=== PATIENT | male | born 1955 | race Caucasian/White ===

== ENCOUNTER 2023-01-16 06:50 | Day surgery (SDC) | payer MEDICARE ==
[2023-01-16] MEDS ORDERED: Propofol 200 MG/20 ML SDV ONE ×2 (07:13→09:20)
[2023-01-16] MEDS ORDERED: Midazolam 1 MG/ML 2 ML SDV ONE (07:14)
[2023-01-16] MEDS ORDERED: fentaNYL 50 MCG/ML SDV ONE (07:14)
[2023-01-16] MEDS ORDERED: Lactated Ringers 1,000 ML IV SCH (07:30)
== END 2023-01-16 10:20 | disposition home or self-care (01) ==
LOC: JP.SDS 06:50
PROVIDERS: ATTEND Student in an Organized Health Care Education/Training Program
DX: Z12.11 Encounter for screening for malignant neoplasm of colon (principal); D12.2 Benign neoplasm of ascending colon; D12.3 Benign neoplasm of transverse colon; I10 Essential (primary) hypertension; K21.9 Gastro-esophageal reflux disease without esophagitis; E03.9 Hypothyroidism, unspecified; E66.9 Obesity, unspecified
CPT/HCPCS: 88305; 93005; 93010; J2250; J2704; J3010; J7120

== ENCOUNTER 2024-01-17 06:22 | Day surgery (SDC) | payer MEDICARE ==
[2024-01-17] MEDS ORDERED: Midazolam 1 MG/ML 2 ML SDV ONE (07:18)
[2024-01-17] MEDS ORDERED: fentaNYL 50 MCG/ML SDV ONE (07:18)
[2024-01-17] MEDS ORDERED: Propofol 200 MG/20 ML SDV ONE (07:19)
[2024-01-17] MEDS: Lactated Ringers 1,000 ML IV SCH (07:36)
== END 2024-01-17 09:24 | disposition home or self-care (01) ==
LOC: JP.SDS 06:22
PROVIDERS: ATTEND Student in an Organized Health Care Education/Training Program
DX: Z12.11 Encounter for screening for malignant neoplasm of colon (principal); D12.0 Benign neoplasm of cecum; I10 Essential (primary) hypertension; F17.200 Nicotine dependence, unspecified, uncomplicated
CPT/HCPCS: 45380; 88305; J2250; J2704; J3010; J7120